=== PATIENT | female | born 1985 | race Caucasian/White ===

== ENCOUNTER 2017-05-27 17:33 | Outpatient (CLI) | payer BC ==
[2017-05-27] VITALS (7 sets, daily range): BP systolic 113–132; BP diastolic 72–86
[~2017-05-27] VITALS: Ht 167.6 cm; Wt 80.0 kg
[~2017-05-27 17:33] MED LIST: ERYTHROMYC1 APPLICAT RIGHT EYE; TYLENOL WITH C1 EACH PO; VIGAMOX 0.60 DROP/3 RIGHT EYE
[2017-05-27 19:14] LABS: HEMATOCRIT 31.1 % (36.0-46.0); MCH 29.4 PG (29.0-34.0); MCHC 33.4 G/DL (30.0-36.0); MCV 87.9 FL (83-99); MEAN PLAT.VOLUME 11.9 uM^3 (9.5-12.4); PLATELET COUNT 175 K/uL (156-360); RBC DIS.WIDTH-CV 13.6 % (11.8-14.6); RBC DIS.WIDTH-SD 43.5 % (39-53); RED BLOOD COUNT 3.54 M/uL (3.80-5.20); WHITE BLOOD COUNT 9.7 K/uL (4.1-10.2)
[2017-05-27 19:19] LABS: ANION GAP 11 MEQ/L (2-14); CHLORIDE 106 MEQ/L (99-109); POTASSIUM 3.2 MEQ/L (3.7-5.4); SAMPLE HEMOLYSIS CHECK 0; SAMPLE ICTERIC CHECK 0; SAMPLE LIPEMIA CHECK 0; SODIUM 138 MEQ/L (136-147); TOTAL BILIRUBIN 0.4 MG/DL (0.0-1.0)
[2017-05-27 19:25] LABS: ALKALINE PHOSPHATASE 137 IU/L (3-129); GFR ESTIMATE (CALCULATED) > 59 mL/min/; GLUCOSE 67 mg/dL (70-99); UREA NITROGEN (BUN) 6 mg/dL (9-23)
[2017-05-27 20:39] LABS: UR CREATININE CONCENTRATION 71.1 MG/DL
[2017-05-27] MEDS ORDERED: PRENATAL TABLE1 EACH PO (20:53)
[2017-05-27] MEDS ORDERED: PREVACID15 MG PO (20:54)
== END 2017-05-27 21:00 | disposition home or self-care (01) ==
LOC: LDRP-OP 17:33 → 2WEST 17:35 → LDRP-OP 07-12 13:25
PROVIDERS: Advanced Practice Midwife
DX: O13.3 Gestational [pregnancy-induced] hypertension without significant proteinuria, third trimester (principal); Z3A.37 37 weeks gestation of pregnancy
CPT/HCPCS: 59025; 80053; 82570; 84156; 85027; G0378

== ENCOUNTER 2017-06-08 11:10 | Outpatient (CLI) | payer BC ==
[~2017-06-08] VITALS: Ht 167.6 cm; Wt 78.9 kg
[~2017-06-08 11:10] MED LIST changes: +PRENATAL TABLE1 EACH PO; +PREVACID15 MG PO
[2017-06-08 12:32] LABS: EOSINOPHIL (%) 0 % (0-5); HEMATOCRIT 33.3 % (36.0-46.0); IMMATURE GRANULOCYTE (%) 0.5 % (0.0-0.7); INSTRUMENT ABS NEUTROPHIL CT 6.1 K/uL; LYMPHOCYTE COUNT 1.4 K/uL (1.0-2.8); MCH 29.3 PG (29.0-34.0); MCHC 33.6 G/DL (30.0-36.0); MCV 87.2 FL (83-99); MEAN PLAT.VOLUME 11.7 uM^3 (9.5-12.4); MONOCYTE (%) 6.1 % (3-12); MONOCYTE COUNT 0.5 K/uL (0-0.8); NEUTROPHIL (%) 75.9 % (45-76); NEUTROPHIL COUNT 6.1 K/uL (1.8-6.4); PLATELET COUNT 168 K/uL (156-360); RBC DIS.WIDTH-CV 13.8 % (11.8-14.6); RBC DIS.WIDTH-SD 42.7 % (39-53); RED BLOOD COUNT 3.82 M/uL (3.80-5.20); WHITE BLOOD COUNT 8.1 K/uL (4.1-10.2)
[2017-06-08 12:35] VITALS: BP 135/78
[2017-06-08 13:05] VITALS: BP 137/90
[2017-06-08 13:14] LABS: ALKALINE PHOSPHATASE 151 IU/L (3-129); ANION GAP 11 MEQ/L (2-14); CHLORIDE 106 MEQ/L (99-109); GFR ESTIMATE (CALCULATED) > 59 mL/min/; GLUCOSE 68 mg/dL (70-99); POTASSIUM 3.7 MEQ/L (3.7-5.4); SAMPLE HEMOLYSIS CHECK 0; SAMPLE ICTERIC CHECK 0; SAMPLE LIPEMIA CHECK 0; SODIUM 138 MEQ/L (136-147); TOTAL BILIRUBIN 0.4 MG/DL (0.0-1.0); UREA NITROGEN (BUN) 5 mg/dL (9-23)
[2017-06-08 13:36] LABS: UR CREATININE CONCENTRATION 20.9 MG/DL
[2017-06-08 13:42] LABS: URIC ACID 5.3 mg/dL (3.1-9.2)
== END 2017-06-08 14:17 | disposition home or self-care (01) ==
LOC: LDRP-OP 11:10 → 2WEST 11:11 → LDRP-OP 07-12 00:31
PROVIDERS: Nurse Practitioner
DX: O13.3 Gestational [pregnancy-induced] hypertension without significant proteinuria, third trimester (principal); Z3A.39 39 weeks gestation of pregnancy
CPT/HCPCS: 59025; 80053; 82570; 84156; 84550; 85025; C1755; G0378

== ENCOUNTER 2017-06-08 17:45 | Inpatient (IN) | payer BC ==
[~2017-06-08] VITALS: Ht 167.6 cm; Wt 78.9 kg
[2017-06-08] VITALS (8 sets, daily range): BP systolic 122–142; BP diastolic 73–90
[2017-06-08 19:18] LABS: EOSINOPHIL (%) 0 % (0-5); HEMATOCRIT 30.4 % (36.0-46.0); IMMATURE GRANULOCYTE (%) 0.4 % (0.0-0.7); LYMPHOCYTE COUNT 1.7 K/uL (1.0-2.8); MCH 29.9 PG (29.0-34.0); MCHC 34.5 G/DL (30.0-36.0); MCV 86.6 FL (83-99); MEAN PLAT.VOLUME 11.6 uM^3 (9.5-12.4); MONOCYTE COUNT 0.4 K/uL (0-0.8); NEUTROPHIL (%) 73.4 % (45-76); PLATELET COUNT 162 K/uL (156-360); RBC DIS.WIDTH-CV 13.9 % (11.8-14.6); RBC DIS.WIDTH-SD 43.3 % (39-53); RED BLOOD COUNT 3.51 M/uL (3.80-5.20); WHITE BLOOD COUNT 8.2 K/uL (4.1-10.2)
[2017-06-09] VITALS (30 sets, daily range): BP systolic 111–173; BP diastolic 57–96
[2017-06-10] VITALS (17 sets, daily range): BP systolic 108–156; BP diastolic 68–94
[2017-06-10] MEDS ORDERED: IBUPROFEN800 MG PO (09:40)
[2017-06-10] MEDS ORDERED: ENDOCET 5-3251 EACH PO (09:40)
[2017-06-10 09:57] LABS: EOSINOPHIL (%) 0 % (0-5); HEMATOCRIT 30.9 % (36.0-46.0); IMMATURE GRANULOCYTE (%) 0.4 % (0.0-0.7); IMMATURE GRANULOCYTE COUNT 0.1 K/uL; INSTRUMENT ABS NEUTROPHIL CT 16.4 K/uL; MCH 29.2 PG (29.0-34.0); MCHC 32.4 G/DL (30.0-36.0); MCV 90.4 FL (83-99); MEAN PLAT.VOLUME 11.9 uM^3 (9.5-12.4); MONOCYTE (%) 4.3 % (3-12); MONOCYTE COUNT 0.8 K/uL (0-0.8); NEUTROPHIL (%) 89.8 % (45-76); NEUTROPHIL COUNT 16.4 K/uL (1.8-6.4); PLATELET COUNT 163 K/uL (156-360); RBC DIS.WIDTH-CV 14.2 % (11.8-14.6); RBC DIS.WIDTH-SD 45.6 % (39-53); RED BLOOD COUNT 3.42 M/uL (3.80-5.20); WHITE BLOOD COUNT 18.2 K/uL (4.1-10.2)
[2017-06-11 06:46] LABS: EOSINOPHIL (%) 0 % (0-5); HEMATOCRIT 22.2 % (36.0-46.0); IMMATURE GRANULOCYTE (%) 0.5 % (0.0-0.7); IMMATURE GRANULOCYTE COUNT 0.1 K/uL; INSTRUMENT ABS NEUTROPHIL CT 9.4 K/uL; MCH 28.9 PG (29.0-34.0); MCHC 32.4 G/DL (30.0-36.0); MCV 89.2 FL (83-99); MEAN PLAT.VOLUME 12.1 uM^3 (9.5-12.4); MONOCYTE (%) 5.9 % (3-12); MONOCYTE COUNT 0.7 K/uL (0-0.8); NEUTROPHIL (%) 76.8 % (45-76); NEUTROPHIL COUNT 9.4 K/uL (1.8-6.4); PLATELET COUNT 155 K/uL (156-360); RBC DIS.WIDTH-CV 14.6 % (11.8-14.6); RBC DIS.WIDTH-SD 47.2 % (39-53); WHITE BLOOD COUNT 12.3 K/uL (4.1-10.2)
[2017-06-11 06:47] LABS: RED BLOOD COUNT 2.49 M/uL (3.80-5.20)
[2017-06-11 08:07] VITALS: BP 126/88
[2017-06-11 11:46] VITALS: BP 111/63
[2017-06-11 15:20] VITALS: BP 136/95
[2017-06-11 19:46] VITALS: BP 135/87
[2017-06-12 07:17] VITALS: BP 126/81
== END 2017-06-12 12:20 | disposition home or self-care (01) | DRG 774 ==
LOC: LDRP-OP 17:45 → 2WEST 17:46 → LDRP-OP 07-12 14:30
PROVIDERS: Nurse Practitioner; Obstetrics & Gynecology
PROC: 3E033VJ Introduction of Other Hormone into Peripheral Vein, Percutaneous Approach (ICD-10-PCS; principal; 2017-06-10)
PROC: 10E0XZZ Delivery of Products of Conception, External Approach (ICD-10-PCS; principal; 2017-06-10)
PROC: 3E0R3CZ (ICD-10-PCS; principal; 2017-06-10)
PROC: 3E0H7GC Introduction of Other Therapeutic Substance into Lower GI, Via Natural or Artificial Opening (ICD-10-PCS; principal; 2017-06-10)
PROC: 00HU33Z Insertion of Infusion Device into Spinal Canal, Percutaneous Approach (ICD-10-PCS; principal; 2017-06-10)
PROC: 0U7C7DZ Dilation of Cervix with Intraluminal Device, Via Natural or Artificial Opening (ICD-10-PCS; principal; 2017-06-10)
PROC: 0KQM0ZZ Repair Perineum Muscle, Open Approach (ICD-10-PCS; principal; 2017-06-10)
DX: O13.4 Gestational [pregnancy-induced] hypertension without significant proteinuria, complicating childbirth (principal); O63.1 Prolonged second stage (of labor); O70.1 Second degree perineal laceration during delivery; O72.1 Other immediate postpartum hemorrhage; O99.02 Anemia complicating childbirth; D62 Acute posthemorrhagic anemia; Z3A.39 39 weeks gestation of pregnancy; Z37.0 Single live birth
CPT/HCPCS: 59025; 80053; 82570; 84156; 84550; 85025; 85025 91; C1726; C1755; G0378; J0595; J3010; J7120